=== PATIENT | female | born 1960 | race Caucasian/White ===

== ENCOUNTER 2021-09-02 06:45 | Day surgery (SDC) | payer MEDICAID ==
[~2021-09-02] VITALS: Ht 160 cm; Wt 83.5 kg
[2021-09-02] MEDS ORDERED: MEPERIDINE 100 MG INJ. 100 MG/ML VIAL ONE (07:22)
[2021-09-02] MEDS: fentaNYL CITRATE/PF 100 MCG/2 ML AMP ONE ×2 (09:17→09:21)
[2021-09-02] MEDS: MIDAZOLAM HCL 5 MG/5 ML VIAL ONE ×3 (09:17→09:29)
[2021-09-02] MEDS ORDERED: DIPHENHYDRAMINE INJ 50 MG/ML VIAL ONE (09:25)
[2021-09-03 10:28] VITALS: BP_SYST 123
== END 2021-09-02 11:20 | disposition home or self-care (01) ==
LOC: SDS 06:45 → SMU 06:46 → SDS 11:20
PROVIDERS: ATTEND Internal Medicine
DX: R19.4 Change in bowel habit (principal); D12.5 Benign neoplasm of sigmoid colon; K57.30 Diverticulosis of large intestine without perforation or abscess without bleeding; K64.8 Other hemorrhoids; Z20.822 Contact with and (suspected) exposure to COVID-19; Z79.899 Other long term (current) drug therapy
CPT/HCPCS: 36415; 45380; 45385; 82962; 87426; 88305; 99152; 99153; G0378; J1200; J2250; J3010; 45378; J2175